=== PATIENT | female | born 1980 | race Caucasian/White ===

== ENCOUNTER → 2020-08-07 | Outpatient (CLI) | payer BC ==
--- NOTE | 2020-08-07 16:12 | KCIC ---
EXAM: MRI LEFT SHOULDER WITHOUT CONTRAST INDICATION: Left shoulder pain. Posterior left shoulder pain and limited range of motion for 3 months . COMPARISON: None TECHNIQUE: Multiplanar, multisequence imaging of the left shoulder without contrast. FINDINGS: ROTATOR CUFF: The supraspinatus, infraspinatus, subscapularis, and teres minor tendons are intact. No rotator cuff muscle atrophy or edema. LABRUM: The labrum is intact. BICEPS TENDON: The biceps tendon is intact and located. ACROMIOCLAVICULAR JOINT: Within normal limits. Type II acromion without downsloping. GLENOHUMERAL JOINT: Articular cartilage is intact. No acute fracture or marrow signal abnormality. Al ignment is normal. OTHER: No joint effusion or intra-articular body. No subacromial-subdeltoid bursitis. IMPRESSION: Normal MRI of the left shoulder. Electronically signed by: Bri Koch MD (08/07/2020 4:10 PM) [id number]
== END ==
LOC: KCIC MRI 12:21
PROVIDERS: ATTEND Family Medicine
DX: M25.512 Pain in left shoulder (principal)
CPT/HCPCS: 73221